=== PATIENT | female | born 1975 | race African-American/Black ===

== ENCOUNTER 2020-02-18 13:26 | Observation (INO) | payer OTHER ==
[~2020-02-18] VITALS: Ht 162.6 cm; Wt 55.8 kg
[2020-02-18 13:28] VITALS: BP 132/50
[2020-02-18 19:33] LABS: ABSOLUTE NEUTROPHILS 5.8 thou/uL (1.4-8.2); BASOPHILS 0.3 % (0.0-2.0); EOSINOPHILS 0.5 % (0.0-3.0); LYMPHOCYTES 14.2 % (24.0-44.0); MCH 24.6 pg (26.0-34.0); MCHC 33.2 g/dL (28.0-37.0); MCV 73.9 fL (80.0-100.0); PLATELET COUNT 310 thou/uL (150-400); RBC 3.25 mil/uL (4.20-5.00); RDW 18.6 % (10.5-14.5); WBC 7.3 thou/uL (4.0-11.0)
[2020-02-18 19:46] LABS: CALCIUM 9.2 mg/dL (8.5-10.1); CREATININE 0.5 mg/dL (0.6-1.0); MAGNESIUM 2.1 mg/dL (1.8-2.4); POTASSIUM 4.2 mmol/L (3.5-5.1)
[2020-02-18 21:21] VITALS: BP 142/82
[2020-02-18 22:00] VITALS: BP 137/86
[2020-02-19] MEDS ORDERED: BACLOFEN20 MG PER TUBE (00:05)
[2020-02-19] MEDS ORDERED: TIZANIDINE4 MG/1 TA1 PER TUBE (00:12)
--- NOTE | 2020-02-19 05:08 | NUR ---
PT ARRIVED FROM THE ER THIS SHIFT. AWAKE AND ALERT TO SELF.UNABLE TO VOICE NEEDS. PT CONTRACTED IN ALL EXTREMITIES. IV INTACT IN LEFT BREAST. PT SATS 100% ON RA. SACRAL WOUND PICTURE TAKEN. PT REPOSITIONED FOR COMFORT DUE TO BED BOUND. JTUBE IN LLQ. PT NPO. SCD'S ON TOSHIA LOWER EXT. FALL PREC IN PLACE AND FREQ ROUNDING DONE WILL CONT TO MONITOR.
[2020-02-19 05:38] LABS: HEMOGLOBIN 7.9 gm/dL (12.0-15.0); MCH 23.9 pg (26.0-34.0); MCHC 31.6 g/dL (28.0-37.0); MCV 75.4 fL (80.0-100.0); RBC 3.32 mil/uL (4.20-5.00); RDW 18.7 % (10.5-14.5); WBC 5.7 thou/uL (4.0-11.0)
[2020-02-19 05:49] LABS: PROTIME 10.4 Seconds (9.3-11.4)
[2020-02-19] MEDS ORDERED: TYLENOL325 MG PO (07:38)
[2020-02-19] MEDS ORDERED: DULCOLAX10 MG RECTAL (07:38)
[2020-02-19] MEDS ORDERED: BOUDREAUXS10 GM TOP (07:40)
[2020-02-19] MEDS ORDERED: ANTACID325 MG PER TUBE (07:44)
[2020-02-19] MEDS ORDERED: BRINTELLIX10 MG PER TUBE (07:45)
[2020-02-19] MEDS ORDERED: ESOMEPRAZOLE MA40 MG PER TUBE (07:50)
[2020-02-19] MEDS ORDERED: CULTURELLE1 EACH PER TUBE (07:55)
[2020-02-19] MEDS ORDERED: LORATIDINE 10 M10 M1 PER TUBE (07:56)
[2020-02-19] MEDS ORDERED: LORAZEPAM I2 MG/1 M2 PER TUBE (07:59)
[2020-02-19] MEDS ORDERED: METOCLOPRAMIDE 55 M1 PER TUBE (07:59)
[2020-02-19 08:00] VITALS: BP 130/68
[2020-02-19] MEDS ORDERED: NYSTATIN1 EA10 TOP (08:00)
[2020-02-19] MEDS ORDERED: OXTELLAR XR300 MG PER TUBE (08:01)
[2020-02-19] MEDS ORDERED: MIRALAX17 G1 PER TUBE (08:04)
[2020-02-19] MEDS ORDERED: POTASSIUM20 MEQ/15 PER TUBE (08:05)
--- NOTE | 2020-02-19 08:57 | NUR ---
assessment: CM REVIEWED CHART. 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 PT IS NON VERBAL. PT WAS ADMITTED FROM [facility] DUE TO A CLOGGED PEG TUBE. IR IS CONSULTED TO SEE PATIENT. CM REACHED OUT TO LIASON AT [facility] TO VERIFY IF FRIEND DARWIN THAT IS LISTED IS HER DPOA. CM FAXED UPDATED CLINICAL TO [facility]. PLANS ARE BACK TO FACILITY ONCE MEDICALLY STABLE. CM WILL CONTINUE TO FOLLOW TO ASSIST NEEDED. CM LEFT VM WITH FRIEND DARWIN THAT IS LISTED.
--- NOTE | 2020-02-19 09:50 | NUR ---
WOUND CONSULT; THERE IS A SACRAL WOUND OF PRIOR INJURY WITH SCARRING. THERE IS A WOUND AT THE CENTER OF THE SCARRING MEASURES 0.5 X 0.5 X 0.5 WITH A SMALL AMOUNT OF SEROSANGINOUS DRAINAGE. NO OBVIOUS S/S OF INFECTION. RECOMMENDATIONS; 1-CONSULT DR GARCIA FOR WOUND CARE MANAGMENT. 2-ADD A LOW AIR LOSS PUMP. I WAS ASSISTED BY THE RN.
--- NOTE | 2020-02-19 10:42 | NUR ---
Assumed care of pt at 0700. Pt nonverbal. Does not appear in pain. J-tube unclogged by IR staff at bedside. IVF infusing. Q2h turn. Incontinent. Pt will discharge back to facility. Will report to RN at facility. Frequent rounding. Fall precautions in place. Will continue to monitor.
== END 2020-02-19 12:16 | disposition designated cancer center or children's hospital (05) ==
LOC: ER 13:26 → EROBS 20:39 → 4S 20:39 → EROBS 20:40 → 4S 21:48
PROVIDERS: Emergency Medicine; Nurse Practitioner Family; ADMIT Hospitalist; ATTEND Hospitalist
DX: K94.23 Gastrostomy malfunction (principal); Z20.828 Contact with and (suspected) exposure to other viral communicable diseases; G80.9 Cerebral palsy, unspecified; F32.9 Major depressive disorder, single episode, unspecified; Z88.8 Allergy status to other drugs, medicaments and biological substances
CPT/HCPCS: 10195